=== PATIENT | female | born 1980 | race Caucasian/White ===

== ENCOUNTER 2017-01-05 12:42 | Emergency (ER) | payer MEDICAID ==
[2017-01-05 14:02] LABS: Eosinophils % (Auto) 1.6 % (0.0-4.3); Hematocrit 38.9 % (30.3-42.9); Hemoglobin 13.2 gm/dl (10.1-14.3); Mean Corpuscular HGB Conc 34 % (30-34); Mean Corpuscular Hemoglobin 34 pg (28-32); Mean Corpuscular Volume 100 fl (79-97); Platelet Count 180 K/mm3 (140-440); Red Blood Count 3.88 M/mm3 (3.65-5.03); Red Cell Distribution Width 14.6 % (13.2-15.2); White Blood Count 6.8 K/mm3 (4.5-11.0)
[2017-01-05 15:37] LABS: Bilirubin,Urine NEG (Negative); Blood,Urine LG (Negative); Ketones,Urine NEG (Negative); Leukocyte Esterase,Urine NEG (Negative); Nitrite,Urine NEG (Negative); RBC,Urine > 182.0 /HPF (0.0-6.0); Urobilinogen,Urine < 2.0 mg/dL (<2.0)
--- NOTE | 2017-01-05 22:29 | Emergency Department Report ---
ED Female HPI - General Chief complaint: Vaginal Bleeding Stated complaint: VAG BLEEDING/CRAMPING/12 DAYS Source: patient Mode of arrival: Ambulatory Limitations: No Limitations - History of Present Illness Initial comments: 36-year-old female presents to emergency department with complaint of crampy lower pelvic pain and vaginal bleeding. Patient states she's been changing her pads approximately every 6 hours for the current day. She is never had a unusual or abnormal cycle in the past. She states that her bleeding started on December 24 and subsequently stopped the following Tuesday. She just restarted bleeding today. She do not believe she is . No fevers chills nausea vomiting. -: Sudden Location: suprapubic, LLQ Radiation: non-radiating Severity: moderate Quality: sharp Worsens with: none Are you Now?: No Associated Symptoms: vaginal bleeding. denies: headaches, loss of appetite, dysuria, shortness of breath, syncope - Related Data Previous Rx's Medication Instructions Recorded Last Taken Type Aspirin EC [Aspirin Enteric Coated 325 mg PO QDAY #30 tablet 10/22/13 Unknown Rx TAB] HYDROcodone/APAP 5-325 [Lee 1 each PO Q6HR PRN #20 tablet 06/04/14 Unknown Rx 5-325 mg TAB] Allergies Allergy/AdvReac Type Severity Reaction Status Date / Time lactose Allergy Vomiting Verified 06/04/14 10:08 Penicillins Allergy Vomiting Verified 06/04/14 10:08 ED Review of Systems ROS: Stated complaint: VAG BLEEDING/CRAMPING/12 DAYS Other details as noted in HPI Comment: All other systems reviewed and negative Constitutional: denies: chills, fever Eyes: denies: eye pain, eye discharge, vision change ENT: denies: ear pain, throat pain Respiratory: denies: cough, shortness of breath, wheezing Cardiovascular: denies: chest pain, palpitations Endocrine: no symptoms reported Gastrointestinal: denies: abdominal pain, nausea, diarrhea Genitourinary: denies: urgency, dysuria, discharge Musculoskeletal: denies: back pain, joint swelling, arthralgia Skin: denies: rash, lesions Neurological: denies: headache, weakness, paresthesias Psychiatric: denies: anxiety, depression Hematological/Lymphatic: denies: easy bleeding, easy bruising ED Past Medical Hx - Past Medical History Hx Congestive Heart Failure: No Hx Diabetes: No Hx Asthma: No Hx COPD: No Additional medical history: mitral valve prolapse - Surgical History Additional Surgical History: , mitral valve replacement - Family History Family history: no significant - Social History Smoking Status: Current Every Day Smoker Substance Use Type: Alcohol - Medications Home Medications: Home Medications Medication Instructions Recorded Confirmed Last Taken Type Aspirin EC [Aspirin Enteric Coated 325 mg PO QDAY #30 tablet 10/22/13 06/04/14 Unknown Rx TAB] HYDROcodone/APAP 5-325 [Lee 1 each PO Q6HR PRN #20 tablet 06/04/14 Unknown Rx 5-325 mg TAB] ED Physical Exam - General Limitations: No Limitations General appearance: alert, in no apparent distress - Head Head exam: Present: atraumatic, normocephalic - Eye Eye exam: Present: normal appearance. Absent: scleral icterus, conjunctival injection - ENT ENT exam: Present: mucous membranes moist - Neck Neck exam: Present: normal inspection - Respiratory Respiratory exam: Present: normal lung sounds bilaterally. Absent: respiratory distress, wheezes, rales - Cardiovascular Cardiovascular Exam: Present: regular rate, normal rhythm. Absent: systolic murmur, diastolic murmur, rubs, gallop - GI/Abdominal GI/Abdominal exam: Present: soft, tenderness (suprapubic and left lower quadrant ), normal bowel sounds. Absent: distended, guarding, rebound - Extremities Exam Extremities exam: Present: normal inspection - Back Exam Back exam: Present: normal inspection - Neurological Exam Neurological exam: Present: alert, oriented X3 - Psychiatric Psychiatric exam: Present: normal affect, normal mood - Skin Skin exam: Present: warm, dry, intact, normal color. Absent: rash ED Course Vital Signs 01/05/17 12:49 Temperature 98.7 F Pulse Rate 52 L Respiratory 16 Rate Blood Pressure 100/66 O2 Sat by Pulse 98 Oximetry ED Medical Decision Making - Lab Data Result diagrams: 01/05/17 13:37 Laboratory Results - last 24 hr 01/05/17 01/05/17 01/05/17 13:37 13:37 13:37 WBC 6.8 RBC 3.88 Hgb 13.2 Hct 38.9 MCV 100 H MCH 34 H MCHC 34 RDW 14.6 Plt Count 180 Lymph % (Auto) 25.6 [place] % (Auto) 7.6 H Eos % (Auto) 1.6 Baso % (Auto) 1.0 Lymph # 1.7 [place] # 0.5 Eos # 0.1 Baso # 0.1 Seg Neutrophils % 64.2 Seg Neutrophils # 4.4 HCG, Quant < 2 Urine Color Urine Turbidity Urine pH Ur Specific [place] Urine Protein Urine Glucose (UA) Urine Ketones Urine Blood Urine Nitrite Urine Bilirubin Urine Urobilinogen Ur Leukocyte Esterase Urine WBC (Auto) Urine RBC (Auto) U Epithel Cells (Auto) Blood Type O POSITIVE Antibody Screen Negative 01/05/17 14:28 WBC RBC Hgb Hct MCV MCH MCHC RDW Plt Count Lymph % (Auto) [place] % (Auto) Eos % (Auto) Baso % (Auto) Lymph # [place] # Eos # Baso # Seg Neutrophils % Seg Neutrophils # HCG, Quant Urine Color Red Urine Turbidity Slightly-cloudy Urine pH 6.0 Ur Specific [place] 1.011 Urine Protein 100 mg/dl Urine Glucose (UA) Neg Urine Ketones Neg Urine Blood Lg Urine Nitrite Neg Urine Bilirubin Neg Urine Urobilinogen < 2.0 Ur Leukocyte Esterase Neg Urine WBC (Auto) 82.0 H Urine RBC (Auto) > 182.0 U Epithel Cells (Auto) 2.0 Blood Type Antibody Screen - Medical Decision Making Patient is a 36-year-old female here with vaginal bleeding. Patient states she does not typically have unusual cycles. She is slightly tender in her suprapubic region and her left lower quadrant. Plan to evaluate with pelvic ultrasound. CBC unremarkable. Patient appears clinically well. Plan outpatient follow-up with her dye house helper next week. Critical care attestation.: If time is entered above; I have spent that time in minutes in the direct care of this critically ill patient, excluding procedure time. ED Disposition Clinical Impression: Vaginal bleeding, Dysmenorrhea Disposition: DC-01 TO HOME OR SELFCARE Is pt being admited?: No Condition: Stable Instructions: Dysmenorrhea (ED) Additional Instructions: Please follow up with your dye house helper tomorrow Referrals: PRIMARY CARE [Primary Care Provider] - 3-5 Days
--- NOTE | 2017-01-06 00:02 | Ultrasound Report ---
FINAL REPORT PROCEDURE: US TRANSVAGINAL TECHNIQUE: Real-time transvaginal sonography in multiple planes of the pelvis was performed with image documentation. This examination was performed without Doppler. Vascular abnormalities, including ovarian torsion, will not be detectable without Doppler evaluation. CPT 26037 HISTORY: vaginal bleeding, pain COMPARISON: No prior studies are available for comparison. FINDINGS: UTERUS Size: 8 x 4 cm. Endometrial thickness: 8 mm. Orientation: anteverted. Cervix: Normal. Fibroids/masses: None. RIGHT Ovary: 2.9 x 2.2 x 2.4 cm. Appearance: Normal. LEFT Ovary: 3.5 x 2.6 x 2.3 cm. Appearance: Normal. Pelvic fluid: None. Other: None. IMPRESSION: Unremarkable study.
[2017-01-06] MEDS ORDERED: TYLENOL PO ONE (00:37)
--- NOTE | 2017-01-06 00:45 | Ultrasound Report ---
FINAL REPORT PROCEDURE: US PELVIC COMPLETE TECHNIQUE: Real-time transabdominal sonography in multiple planes of pelvis was performed with image documentation. This examination was performed without Doppler. Vascular abnormalities, including ovarian torsion, will not be detectable without Doppler evaluation. CPT 69552 HISTORY: vaginal bleeding, pain COMPARISON: No prior studies are available for comparison. FINDINGS: UTERUS Size: 8 x 4 cm. Endometrial thickness: 8 mm. Orientation: anteverted. Cervix: Normal. Fibroids/masses: None. RIGHT Ovary: 2.9 x 2.2 x 2.4 cm. Appearance: Normal. LEFT Ovary: 3.5 x 2.6 x 2.3 cm. Appearance: Normal. Pelvic fluid: None. Other: None. IMPRESSION: Normal Examination
[2017-01-06 00:48] VITALS: BP 137/73
== END 2017-01-06 00:58 | disposition home or self-care (01) ==
LOC: ED 12:42
DX: N94.6 Dysmenorrhea, unspecified (principal); F17.200 Nicotine dependence, unspecified, uncomplicated
CPT/HCPCS: 36415; 76830; 76856; 81001; 84702; 85025; 86850; 86900; 86901; 87591

== ENCOUNTER 2017-03-06 05:13 | Emergency (ER) | payer MEDICAID, OTHER ==
[2017-03-06] MEDS ORDERED: MOTRIN ONE ×2 (06:49→12:18)
[2017-03-06] MEDS ORDERED: MOTRIN PO ONE ×2 (06:49→12:14)
[2017-03-06] MEDS ORDERED: NACL 0.9% 1000 ML 1,000 ML IV ONE (08:46)
--- NOTE | 2017-03-06 09:10 | XRay Report ---
Unilateral left ribs: History: Left hip pain. Findings: No fracture or lytic lesion. No periosteal reaction. Impression: Essentially negative left ribs.
[2017-03-06 09:14] LABS: Basophils % (Auto) 0.7 % (0.0-1.8); Eosinophils % (Auto) 0.4 % (0.0-4.3); Hematocrit 41.3 % (30.3-42.9); Hemoglobin 14.2 gm/dl (10.1-14.3); Mean Corpuscular HGB Conc 34 % (30-34); Mean Corpuscular Hemoglobin 34 pg (28-32); Mean Corpuscular Volume 100 fl (79-97); Platelet Count 194 K/mm3 (140-440); Red Blood Count 4.14 M/mm3 (3.65-5.03); Red Cell Distribution Width 13.5 % (13.2-15.2); White Blood Count 12.3 K/mm3 (4.5-11.0)
[2017-03-06] MEDS ORDERED: NACL ONE (09:24)
[2017-03-06 09:28] LABS: INR 1.01 (0.87-1.13)
[2017-03-06 09:29] LABS: Partial Thromboplastin Time 24.2 Sec. (24.2-36.6)
[2017-03-06 09:36] LABS: Albumin 4.4 g/dL (3.9-5); Albumin/Globulin Ratio 1.2 %; BUN/Creatinine Ratio 13; Blood Urea Nitrogen 8 mg/dL (7-17); Calcium 9.1 mg/dL (8.4-10.2); Carbon Dioxide 22 mmol/L (22-30); Chloride 100.2 mmol/L (98-107); Glucose 71 mg/dL (65-100); Sodium 139 mmol/L (137-145); Total Protein 8.1 g/dL (6.3-8.2)
[2017-03-06 09:47] LABS: Alanine Aminotransferase 38 units/L (7-56); Alkaline Phosphatase 46 units/L (35-129); Anion Gap 22 mmol/L; Potassium 5.5 mmol/L (3.6-5.0)
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
--- NOTE | 2017-03-06 10:22 | Cat Scan Report ---
CT scan of head without IV contrast: Next History: Trauma. Findings: Ventricles are normal in size and midline in location. No evidence of acute ischemia, hemorrhage or mass. No extra-axial fluid collection. Normal brainstem and cerebellum. No acute changes in the sinuses and mastoid air cells. Suspicion of a retention cyst or polyp left maxillary sinus. Impression: No acute intracranial abnormality.
--- NOTE | 2017-03-06 10:26 | Cat Scan Report ---
CT scan abdomen and pelvis with IV contrast: History: Trauma. Findings: Normal lung bases. No pleural pericardial effusion. Normal liver spleen pancreas gallbladder. Normal adrenals. Scarring in the cortex of the right and left kidney parenchyma. No mass. Normal bladder. No free intraperitoneal fluid or air. No evidence of adenopathy. No extravasation of contrast. No significant bowel distention or wall thickening. Impression: Scarring right and left kidney/chronic. No acute abdominal findings.
--- NOTE | 2017-03-06 10:28 | Cat Scan Report ---
CT scan of chest with IV contrast: History: Trauma. Findings: No endobronchial or mediastinal mass. No mediastinal hilar or axillary adenopathy. No pleural pericardial effusion. No consolidation, mass or pneumothorax of the lung parenchyma. No evidence of rib fracture. Impression: Essentially negative CT scan of the chest.
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
[2017-03-06] MEDS ORDERED: HYDROGEN PEROXIDE ONE (10:54)
[2017-03-06 11:12] LABS: Urine Drugs of Abuse Note Disclamer
[2017-03-06 11:21] LABS: Potassium 4.2 mmol/L (3.6-5.0)
[2017-03-06 11:22] LABS: Bilirubin,Urine NEG (Negative); Blood,Urine MOD (Negative); Ketones,Urine NEG (Negative); Leukocyte Esterase,Urine NEG (Negative); Mucus,Urine FEW /HPF; Nitrite,Urine NEG (Negative); Protein,Urine <15 mg/dL mg/dL (Negative); Urobilinogen,Urine < 2.0 mg/dL (<2.0)
[2017-03-06] MEDS ORDERED: BOOSTRIX IM ONE ×2 (12:15→12:19)
[2017-03-06 13:09] VITALS: BP 131/97
== END 2017-03-06 13:09 | disposition home or self-care (01) ==
LOC: ED 05:13
DX: S00.81XA Abrasion of other part of head, initial encounter (principal); S90.512A Abrasion, left ankle, initial encounter; M79.1 Myalgia; F17.200 Nicotine dependence, unspecified, uncomplicated; Z79.82 Long term (current) use of aspirin; Z88.0 Allergy status to penicillin; Z88.8 Allergy status to other drugs, medicaments and biological substances; V89.2XXA Person injured in unspecified motor-vehicle accident, traffic, initial encounter; Y93.9 Activity, unspecified; Y99.9 Unspecified external cause status; Y92.410 Unspecified street and highway as the place of occurrence of the external cause
CPT/HCPCS: 36415; 70450; 71100; 71260; 72125; 74177; 80053; 80307; 81001; 81025; 82550; 84132; 85025; 85610; 85730; 90471; 90715; 96360; 96361; 99284; G0480; J7030; Q9967; 80320

== ENCOUNTER 2017-06-30 09:10 | Emergency (ER) | payer MEDICAID ==
[2017-06-30] MEDS ORDERED: ZOFRAN ONE (09:31)
[2017-06-30] MEDS ORDERED: MORPHINE ONE (09:32)
[2017-06-30] MEDS ORDERED: MORPHINE IV ONE (09:35)
[2017-06-30] MEDS ORDERED: ZOFRAN IV ONE (09:35)
[2017-06-30] MEDS ORDERED: KETALAR ONE (10:32)
--- NOTE | 2017-06-30 10:49 | XRay Report ---
LEFT ELBOW, 2 VIEWS LEFT FOREARM, 2 VIEWS History: Fracture, dislocation, deformity. Findings: Posterior dislocation is identified at the left elbow. Comminuted fracture of the lateral radial head is identified. The distal humerus and ulna are within normal limits. There is diffuse soft tissue swelling. IMPRESSION: Posterior dislocation at the left elbow. Radial head fracture.
--- NOTE | 2017-06-30 12:02 | XRay Report ---
LEFT ELBOW, 3 views: History: left elbow pain, postreduction film. The posterior dislocation at the left elbow has been reduced since earlier today at at 0955 hours. Radial head fracture is poorly imaged. The distal humerus and proximal ulna are grossly intact on this limited exam. Diffuse soft tissue swelling. IMPRESSION: Anatomic alignment at the left elbow.
--- NOTE | 2017-06-30 13:24 | Emergency Department Report ---
ED Extremity Problem HPI - General Chief complaint: Extremity Injury, Upper Stated complaint: FALL/ELBOW PAIN Time Seen by Provider: 06/30/17 09:26 Source: patient Mode of arrival: Ambulatory Limitations: No Limitations - History of Present Illness Initial comments: Ms. Harman is a 36 yo female presents after fall down steps. She landed on left arm which bumped into tree. She has severe left arm pain with deformity. No other injury. She drove herself to ED. NO recent illness. Hx of MVR with hx of mitral valve prolapse and endocarditis. MD Complaint: extremity pain, extremity swelling -: Gradual, Sudden Location: right, upper extremity, elbow -: Yes arthralgia Severity scale (0 -10): 10 Quality: aching, sharp Consistency: constant Worsens with: other (movement) - Related Data Previous Rx's Medication Instructions Recorded Last Taken Type Aspirin EC [Aspirin Enteric Coated 325 mg PO QDAY #30 tablet 10/22/13 Unknown Rx TAB] Cyclobenzaprine [Flexeril] 10 mg PO TID PRN #10 tablet 03/06/17 Unknown Rx Ibuprofen [Motrin] 800 mg PO Q8HR PRN #20 tablet 03/06/17 Unknown Rx traMADol [Ultram] 50 mg PO Q6HR PRN #10 tablet 03/06/17 Unknown Rx HYDROcodone/APAP 5-325 [[place] 1 each PO Q4HR PRN #20 tablet 06/30/17 Unknown Rx 5/325] Allergies Allergy/AdvReac Type Severity Reaction Status Date / Time lactose Allergy Vomiting Verified 06/04/14 10:08 Penicillins Allergy Vomiting Verified 06/04/14 10:08 ED Review of Systems ROS: Stated complaint: FALL/ELBOW PAIN Other details as noted in HPI Comment: All other systems reviewed and negative Respiratory: denies: cough Cardiovascular: denies: palpitations ED Past Medical Hx - Past Medical History Previous Medical History?: Yes Hx Congestive Heart Failure: No Hx Diabetes: No Hx Asthma: No Hx COPD: No Additional medical history: mitral valve prolapse - Surgical History Past Surgical History?: Yes Additional Surgical History: , mitral valve replacement - Social History Smoking Status: Never Smoker Substance Use Type: Alcohol - Medications Home Medications: Home Medications Medication Instructions Recorded Confirmed Last Taken Type Aspirin EC [Aspirin Enteric Coated 325 mg PO QDAY #30 tablet 10/22/13 06/04/14 Unknown Rx TAB] Cyclobenzaprine [Flexeril] 10 mg PO TID PRN #10 tablet 03/06/17 Unknown Rx Ibuprofen [Motrin] 800 mg PO Q8HR PRN #20 tablet 03/06/17 Unknown Rx traMADol [Ultram] 50 mg PO Q6HR PRN #10 tablet 03/06/17 Unknown Rx HYDROcodone/APAP 5-325 [[place] 1 each PO Q4HR PRN #20 tablet 06/30/17 Unknown Rx 5/325] ED Physical Exam - General Limitations: No Limitations General appearance: alert, in no apparent distress - Head Head exam: Present: atraumatic, normocephalic - Eye Eye exam: Present: normal appearance Pupils: Present: normal accommodation - ENT ENT exam: Present: normal orophraynx, mucous membranes moist - Neck Neck exam: Present: normal inspection. Absent: tenderness, meningismus - Respiratory Respiratory exam: Present: normal lung sounds bilaterally. Absent: respiratory distress, wheezes, rales, rhonchi - Cardiovascular Cardiovascular Exam: Present: regular rate, normal rhythm, normal heart sounds. Absent: bradycardia, tachycardia, irregular rhythm, systolic murmur, diastolic murmur, rubs, gallop - GI/Abdominal GI/Abdominal exam: Present: soft, normal bowel sounds. Absent: distended, tenderness, guarding, rebound - Extremities Exam Extremities exam: Present: joint swelling, other (2+ radial in LUE, deformed elbow with protrusion, edematous humerus and proximal forearm) - Back Exam Back exam: Present: normal inspection - Neurological Exam Neurological exam: Present: alert, oriented X3 - Psychiatric Psychiatric exam: Present: normal affect, normal mood - Skin Skin exam: Present: warm, dry, intact, normal color. Absent: rash ED Course Vital Signs 06/30/17 06/30/17 06/30/17 09:19 09:32 09:40 Temperature 98.4 F Temperature [ Pre-Procedure] Pulse Rate 108 H 103 H Pulse Rate [ Intra-Procedure ] Pulse Rate [Pre -Procedure] Respiratory 20 20 Rate Respiratory Rate [Intra- Procedure] Respiratory Rate [Pre- Procedure] Blood Pressure 119/73 Blood Pressure [Intra- Procedure] Blood Pressure [Pre-Procedure] Blood Pressure 120/84 [Right] O2 Sat by Pulse 100 100 100 Oximetry 06/30/17 06/30/17 06/30/17 09:57 10:00 10:10 Temperature Temperature [ Pre-Procedure] Pulse Rate Pulse Rate [ Intra-Procedure ] Pulse Rate [Pre -Procedure] Respiratory Rate Respiratory Rate [Intra- Procedure] Respiratory Rate [Pre- Procedure] Blood Pressure 120/84 97/72 97/72 Blood Pressure [Intra- Procedure] Blood Pressure [Pre-Procedure] Blood Pressure [Right] O2 Sat by Pulse 98 95 99 Oximetry 06/30/17 06/30/17 06/30/17 10:20 10:30 10:39 Temperature Temperature [ 97.8 F Pre-Procedure] Pulse Rate Pulse Rate [ 110 H Intra-Procedure ] Pulse Rate [Pre 81 -Procedure] Respiratory Rate Respiratory 14 Rate [Intra- Procedure] Respiratory 13 Rate [Pre- Procedure] Blood Pressure 97/72 113/86 Blood Pressure 165/112 [Intra- Procedure] Blood Pressure 124/94 [Pre-Procedure] Blood Pressure [Right] O2 Sat by Pulse 98 98 Oximetry 06/30/17 06/30/17 06/30/17 10:40 10:50 11:00 Temperature Temperature [ Pre-Procedure] Pulse Rate 81 113 H 105 H Pulse Rate [ Intra-Procedure ] Pulse Rate [Pre -Procedure] Respiratory 20 13 15 Rate Respiratory Rate [Intra- Procedure] Respiratory Rate [Pre- Procedure] Blood Pressure 124/94 141/102 137/91 Blood Pressure [Intra- Procedure] Blood Pressure [Pre-Procedure] Blood Pressure [Right] O2 Sat by Pulse 100 100 Oximetry 06/30/17 06/30/17 06/30/17 11:10 11:20 11:30 Temperature Temperature [ Pre-Procedure] Pulse Rate 90 94 H 94 H Pulse Rate [ Intra-Procedure ] Pulse Rate [Pre -Procedure] Respiratory 8 L 13 17 Rate Respiratory Rate [Intra- Procedure] Respiratory Rate [Pre- Procedure] Blood Pressure 140/97 135/96 130/90 Blood Pressure [Intra- Procedure] Blood Pressure [Pre-Procedure] Blood Pressure 140/97 [Right] O2 Sat by Pulse 100 100 100 Oximetry 06/30/17 06/30/17 06/30/17 11:40 11:50 12:00 Temperature Temperature [ Pre-Procedure] Pulse Rate 88 90 97 H Pulse Rate [ Intra-Procedure ] Pulse Rate [Pre -Procedure] Respiratory 15 9 L 13 Rate Respiratory Rate [Intra- Procedure] Respiratory Rate [Pre- Procedure] Blood Pressure 124/87 127/90 133/88 Blood Pressure [Intra- Procedure] Blood Pressure [Pre-Procedure] Blood Pressure [Right] O2 Sat by Pulse 100 100 100 Oximetry 06/30/17 06/30/17 06/30/17 12:10 12:20 12:30 Temperature Temperature [ Pre-Procedure] Pulse Rate 103 H 92 H 97 H Pulse Rate [ Intra-Procedure ] Pulse Rate [Pre -Procedure] Respiratory 19 15 9 L Rate Respiratory Rate [Intra- Procedure] Respiratory Rate [Pre- Procedure] Blood Pressure 128/90 130/93 115/82 Blood Pressure [Intra- Procedure] Blood Pressure [Pre-Procedure] Blood Pressure [Right] O2 Sat by Pulse 100 100 Oximetry 06/30/17 06/30/17 12:40 12:50 Temperature Temperature [ Pre-Procedure] Pulse Rate 96 H 95 H Pulse Rate [ Intra-Procedure ] Pulse Rate [Pre -Procedure] Respiratory 11 L 13 Rate Respiratory Rate [Intra- Procedure] Respiratory Rate [Pre- Procedure] Blood Pressure 117/95 122/68 Blood Pressure [Intra- Procedure] Blood Pressure [Pre-Procedure] Blood Pressure [Right] O2 Sat by Pulse 100 100 Oximetry - Moderate Sedation Indications: fracture/dislocation redu ASA Class: II Mallampati Airway Score: 1 Time of Last PO Intake: 08:00 Preparation: geosciences professor applied, pulse oximeter, capnometry used, supplemental O2 applied, suction/airway equipment at bedside, IV secured Ketamine: IV Ketamine Dose: 50 Complications: none Patient Tolerated Procedure: well - Orthopedic Joint Reduction Joint #1 Consent Obtained: written consent Time Out Performed: Yes Side: left Joint Reduction Location: elbow Analgesia: moderate sedation Technique Used: traction/counter-traction Post-Reduction Neuro Exam: intact Post-Reduction Vascular Exam: intact Post Reduction X-Ray Obtained: Yes Post Reduction X-Ray Results: reduced Splint Applied: Yes - Orthopedic Splinting/Casting Injury #1 Side: right Upper Extremity Injury Location: elbow Upper Extremity Immobilizer: posterior splint ED Medical Decision Making - Radiology Data Radiology results: report reviewed - Medical Decision Making Ms. Harman presents with fracture and reduction of left elbow. After 2 hours, observation and posterior splint placement, 2+ radial pulse intact normal alignment in 90, Patient is awake alert ambulatory. Conscious sedation and shortness were given. Consulted orthopedic surgeon Delano who recommended close follow-up in his office. Critical care attestation.: If time is entered above; I have spent that time in minutes in the direct care of this critically ill patient, excluding procedure time. ED Disposition Clinical Impression: Elbow dislocation, Radial head fracture, closed Disposition: - TO HOME OR SELFCARE Is pt being admited?: No Does the pt Need Aspirin: No Condition: Stable Instructions: Moderate Sedation (ED), Elbow Dislocation (ED), Elbow Fracture in Adults (ED) Prescriptions: HYDROcodone/APAP 5-325 [[place] 5/325] 1 each PO Q4HR PRN #20 tablet PRN Reason: Pain Referrals: PRIMARY CARE, [Primary Care Provider] - 3-5 Days Time of Disposition: 13:36
[2017-06-30] MEDS ORDERED: PERCOCET 5/325 PO ONE (13:38)
[2017-06-30 13:59] VITALS: BP 134/105
== END 2017-06-30 13:59 | disposition home or self-care (01) ==
LOC: ED 09:10
DX: S53.005A Unspecified dislocation of left radial head, initial encounter (principal); W22.09XA Striking against other stationary object, initial encounter; Y93.89 Activity, other specified; Y92.89 Other specified places as the place of occurrence of the external cause; Y99.8 Other external cause status
CPT/HCPCS: 29105; 73070; 73090; 96374; 96375; 99283; J2270; J2405

== ENCOUNTER 2017-07-03 03:00 | Emergency (ER) | payer MEDICAID ==
[2017-07-03] MEDS ORDERED: NORCO 7.5/325 PO ONE (03:42)
[2017-07-03] MEDS ORDERED: NORCO 7.5/325 ONE (03:46)
--- NOTE | 2017-07-03 04:01 | Emergency Department Report ---
ED Extremity Problem HPI - General Stated complaint: LEFT ARM SWELLING Time Seen by Provider: 07/03/17 03:41 - History of Present Illness Initial comments: 36-year-old -[place] female presents back to the emergency room for left arm swelling and pain. Patient reports that she had a splint put on on and she's had increased swelling since then. Patient reports that she is cut the splint partially off to relieve the pressure. The planes of left hand swollen and she can't bend her fingers. She also reports that the skin is red. Patient had a radial head fracture as well as a elbow dislocation. MD Complaint: extremity pain, extremity swelling -: days(s) (3) Location: left, upper extremity History of Same: No Radiation: none Severity scale (0 -10): 8 Quality: stabbing, aching Improves with: elevation, medication Associated Symptoms: rash - Related Data Previous Rx's Medication Instructions Recorded Last Taken Type Aspirin EC [Aspirin Enteric Coated 325 mg PO QDAY #30 tablet 10/22/13 Unknown Rx TAB] Cyclobenzaprine [Flexeril] 10 mg PO TID PRN #10 tablet 03/06/17 Unknown Rx Ibuprofen [Motrin] 800 mg PO Q8HR PRN #20 tablet 03/06/17 Unknown Rx traMADol [Ultram] 50 mg PO Q6HR PRN #10 tablet 03/06/17 Unknown Rx HYDROcodone/APAP 5-325 [[place] 1 each PO Q4HR PRN #20 tablet 07/03/17 Unknown Rx 5-325 mg TAB] Sulfamethoxazole/Trimethoprim 1 each PO BID 10 Days #20 tablet 07/03/17 Unknown Rx [Bactrim Ds Tablet] Allergies Allergy/AdvReac Type Severity Reaction Status Date / Time lactose Allergy Vomiting Verified 06/04/14 10:08 Penicillins Allergy Vomiting Verified 06/04/14 10:08 ED Review of Systems ROS: Stated complaint: LEFT ARM SWELLING Other details as noted in HPI ED Past Medical Hx - Past Medical History Previous Medical History?: Yes Hx Congestive Heart Failure: No Hx Diabetes: No Hx Asthma: No Hx COPD: No Additional medical history: mitral valve prolapse and Replacement 2013 - Surgical History Additional Surgical History: , mitral valve replacement - Social History Smoking Status: Former Smoker - Medications Home Medications: Home Medications Medication Instructions Recorded Confirmed Last Taken Type Aspirin EC [Aspirin Enteric Coated 325 mg PO QDAY #30 tablet 10/22/13 06/04/14 Unknown Rx TAB] Cyclobenzaprine [Flexeril] 10 mg PO TID PRN #10 tablet 03/06/17 Unknown Rx Ibuprofen [Motrin] 800 mg PO Q8HR PRN #20 tablet 03/06/17 Unknown Rx traMADol [Ultram] 50 mg PO Q6HR PRN #10 tablet 03/06/17 Unknown Rx HYDROcodone/APAP 5-325 [[place] 1 each PO Q4HR PRN #20 tablet 07/03/17 Unknown Rx 5-325 mg TAB] Sulfamethoxazole/Trimethoprim 1 each PO BID 10 Days #20 tablet 07/03/17 Unknown Rx [Bactrim Ds Tablet] ED Physical Exam - General General appearance: alert, in no apparent distress - Head Head exam: Present: atraumatic, normocephalic - Eye Eye exam: Present: normal appearance - ENT ENT exam: Present: mucous membranes moist - Neck Neck exam: Present: normal inspection - Respiratory Respiratory exam: Present: normal lung sounds bilaterally. Absent: respiratory distress - Cardiovascular Cardiovascular Exam: Present: regular rate, normal rhythm. Absent: systolic murmur, diastolic murmur, rubs, gallop - GI/Abdominal GI/Abdominal exam: Present: soft, normal bowel sounds - Extremities Exam Extremities exam: Present: normal inspection - Expanded Upper Extremity Exam Left Shoulder Exam: Present: normal inspection, full ROM Upper Arm exam: Present: tenderness, swelling, erythema Elbow exam: Present: tenderness, swelling, erythema, tenderness over radial head Forearm Wrist exam: Present: full ROM, tenderness, swelling, erythema Hand Wrist exam: Present: tenderness, swelling, erythema Vascular: Present: normal capillary refill. Absent: vascular compromise - Back Exam Back exam: Present: normal inspection - Neurological Exam Neurological exam: Present: alert, oriented X3 - Psychiatric Psychiatric exam: Present: normal affect, normal mood - Skin Skin exam: Present: warm, dry, intact, normal color, other (multiple blisters located on the forearm and portion of the upper arm). Absent: rash ED Course Vital Signs 07/03/17 07/03/17 03:32 03:51 Temperature 98.4 F Pulse Rate 109 H Respiratory 20 18 Rate Blood Pressure 144/112 O2 Sat by Pulse 100 Oximetry ED Medical Decision Making - Medical Decision Making Patient has been evaluated by this provider as well as with Dr. Mccann. I discussed the patient we will do an x-ray of her arm. Given patient on Percocet for pain control. Discussed the patient will do wound care for her blisters with Silvadene. Also discussed the patient that I would discharge her on antibiotics for prevention of secondary infection due to blisters on her arm. Also discussed the patient to keep her appointment with orthopedics that she reports is scheduled for Tuesday. Also referred patient to [facility] to have someone follow-up on her wounds. Patient verbalized understanding. Critical care attestation.: If time is entered above; I have spent that time in minutes in the direct care of this critically ill patient, excluding procedure time. ED Disposition Clinical Impression: Limb swelling Radial head fracture, closed Qualifiers: Encounter type: sequela Fracture alignment: displaced Laterality: left Qualified Code(s): S52.122S - Displaced fracture of head of left radius, sequela Elbow dislocation Qualifiers: Encounter type: sequela Laterality: left Qualified Code(s): S53.105S - Unspecified dislocation of left ulnohumeral joint, sequela Disposition: TO HOME OR SELFCARE Is pt being admited?: No Does the pt Need Aspirin: No Condition: Stable Instructions: Arthralgia (ED) Additional Instructions: Please continue to use the Silvadene topical cream to your blisters. Please do not operate heavy machinery while being on the Percocet. Please follow-up with the orthopedic provider that she will was referred to on . Please complete antibiotics as prescribed per precaution secondary infection. Follow- up which her primary care provider within 5-7 days for wound check. Prescriptions: HYDROcodone/APAP 5-325 [[place] 5-325 mg TAB] 1 each PO Q4HR PRN #20 tablet PRN Reason: Pain Sulfamethoxazole/Trimethoprim [Bactrim Ds Tablet] 1 each PO BID 10 Days #20 tablet Referrals: OLLIE FERNANDEZ MD [Primary Care Provider] - 3-5 Days ERI CABA MD [Staff Physician] - 3-5 Days [facility] [place] [Provider Group] - 3-5 Days Forms: Work/School Release Form(ED), Accompanied Note
--- NOTE | 2017-07-03 04:01 | Emergency Department Report ---
Blank Doc - Documentation Documentation: A [id number] with the patient. Agree with the documentation by the APAP. Patient splint was on too tight and she has significant edema to the arm with blistering. Patient also has not been keeping the arm elevated.
[2017-07-03] MEDS ORDERED: THERMAZENE 50 GRAM TP ONE (04:30)
--- NOTE | 2017-07-03 04:51 | XRay Report ---
FINAL REPORT EXAM: XR FOREARM LT HISTORY: swelling and pain COMPARISONS: None. FINDINGS: AP and lateral views of the right forearm No bone lesion, periosteal reaction, or fracture. No deformity or gross malalignment. Multiple soft tissue calcifications are present in the right upper extremity measuring up to around 3 cm adjacent to the elbow. IMPRESSION: No acute osseous finding. Multiple deeper soft tissue calcifications in the right upper extremity may be secondary to connective tissue disorder or recurrent injections. Clinical correlation is requested.
--- NOTE | 2017-07-03 04:52 | XRay Report ---
FINAL REPORT EXAM: XR HUMERUS 2+V LT HISTORY: arm pain and swelling COMPARISONS: Left forearm radiographs of the same date. FINDINGS: AP and lateral views of the left forearm No bone lesion, periosteal reaction, or fracture. No deformity or gross malalignment. Multiple soft tissue calcifications are present in the left upper extremity measuring up to around 3 cm adjacent to the elbow. IMPRESSION: No acute osseous finding. Multiple deeper soft tissue calcifications in the left upper extremity may be secondary to connective tissue disorder or recurrent injections. Clinical correlation is requested.
[2017-07-03 06:06] VITALS: BP 128/88
== END 2017-07-03 06:10 | disposition home or self-care (01) ==
LOC: ED 03:00
DX: M79.602 Pain in left arm (principal); S52.122S Displaced fracture of head of left radius, sequela; S53.10 Unspecified subluxation and dislocation of ulnohumeral joint; R60.0 Localized edema; Z91.011 Allergy to milk products; Z88.0 Allergy status to penicillin; X58.XXXS Exposure to other specified factors, sequela

== ENCOUNTER 2018-12-22 17:36 | Emergency (ER) | payer MEDICAID, OTHER ==
--- NOTE | 2018-12-22 17:45 | Event Note ---
ED Screening Note ED Screening Note: [id number] (one last year and one when much younger) LMP 7-3 pmh MV replacement 10/2013--[facility]-- pt states mechanical; due to endocarditis rx metoprolol here with vag bleed in preg This initial assessment/diagnostic orders/clinical plan/treatment(s) is/are subject to change based on patients health status, clinical progression and re- assessment by fellow clinical providers in the ED. Further treatment and workup at subsequent clinical providers discretion. Patient/guardian urged not to elope from the ED as their condition may be serious if not clinically assessed and managed. Initial orders include: ua labs us
[2018-12-22 18:32] LABS: Hemoglobin 12.9 gm/dl (10.1-14.3); Mean Corpuscular HGB Conc 34 % (30-34); Mean Corpuscular Volume 97 fl (79-97); Platelet Count 230 K/mm3 (140-440); Red Blood Count 3.93 M/mm3 (3.65-5.03); Red Cell Distribution Width 15.4 % (13.2-15.2)
[2018-12-22 18:45] LABS: BUN/Creatinine Ratio 16; Blood Urea Nitrogen 11 mg/dL (7-17); Calcium 9.2 mg/dL (8.4-10.2); Hemolysis Index 20
[2018-12-22 19:13] LABS: Bilirubin,Urine NEG (Negative); Blood,Urine NEG (Negative); Color,Urine Yellow (Yellow); Protein,Urine <15 mg/dL mg/dL (Negative); Urobilinogen,Urine < 2.0 mg/dL (<2.0); WBC,Urine < 1.0 /HPF (0.0-6.0)
--- NOTE | 2018-12-22 20:41 | Ultrasound Report ---
ULTRASOUND OBSTETRIC Indication: vag bleed in preg Findings: Transabdominal and transvaginal imaging was performed. There is a single, living intrauterine . [place]-rump length = 0.74 cm = 6 weeks, 4 day(s). heart rate is 123 beats per minute. No free fluid is seen. Impression: Single, living intrauterine with estimated sonographic age of 6 weeks, 4 day(s). No complic ations are seen. Signer Name: Rishabh Aguirre MD Signed: 12/22/2018 8:36 PM Workstation Name: [id number]
--- NOTE | 2018-12-22 20:41 | Ultrasound Report ---
ULTRASOUND OBSTETRIC Indication: vag bleed in preg Findings: Transabdominal and transvaginal imaging was performed. There is a single, living intrauterine . [place]-rump length = 0.74 cm = 6 weeks, 4 day(s). heart rate is 123 beats per minute. No free fluid is seen. Impression: Single, living intrauterine with estimated sonographic age of 6 weeks, 4 day(s). No complic ations are seen. Signer Name: Rishabh Aguirre MD Signed: 12/22/2018 8:36 PM Workstation Name: [id number]
--- NOTE | 2018-12-22 21:02 | Emergency Department Report ---
ED HPI - General Chief complaint: Abdominal Pain Stated complaint: 4WKS /DISCHARGE/PAIN Time Seen by Provider: 12/22/18 17:42 Source: patient Mode of arrival: Ambulatory Limitations: No Limitations - History of Present Illness Initial comments: Patient is a 38-year-old female presents to emergency room with complaints of vaginal spotting that began 4 days ago. She states 2 weeks ago she took a home test which was positive. She states her last menstrual cycle was November 08. She denies any abdominal pain, dysuria, nausea, vomiting, diarrhea, fever. She does not report any vaginal discharge or vaginal complaints. The patient states she has her first appointment with an [facility] on 12/28/18 at [facility]. States she has an allergy to penicillin and lactose. PMHx of mitral valve replacement with pig valve. /P:3/A:2 - Related Data Previous Rx's Medication Instructions Recorded Last Taken Type Aspirin EC 325 mg PO QDAY #30 tablet 10/22/13 Unknown Rx Cyclobenzaprine [Flexeril] 10 mg PO TID PRN #10 tablet 03/06/17 Unknown Rx Ibuprofen [Motrin] 800 mg PO Q8HR PRN #20 tablet 03/06/17 Unknown Rx traMADol [Ultram] 50 mg PO Q6HR PRN #10 tablet 03/06/17 Unknown Rx HYDROcodone/APAP 5-325 [[place] 1 each PO Q4HR PRN #20 tablet 07/03/17 Unknown Rx 5-325 mg TAB] Sulfamethoxazole/Trimethoprim 1 each PO BID 10 Days #20 tablet 07/03/17 Unknown Rx [Bactrim Ds Tablet] Allergies Allergy/AdvReac Type Severity Reaction Status Date / Time lactose Allergy Vomiting Verified 06/04/14 10:08 Penicillins Allergy Vomiting Verified 06/04/14 10:08 ED Review of Systems ROS: Stated complaint: 4WKS /DISCHARGE/PAIN Other details as noted in HPI Comment: All other systems reviewed and negative ED Past Medical Hx - Past Medical History Previous Medical History?: Yes Hx Congestive Heart Failure: No Hx Diabetes: No Hx Asthma: No Hx COPD: No Additional medical history: mitral valve prolapse and Replacement 2013 - Surgical History Past Surgical History?: Yes Additional Surgical History: , mitral valve replacement - Social History Smoking Status: Never Smoker Substance Use Type: None - Medications Home Medications: Home Medications Medication Instructions Recorded Confirmed Last Taken Type Aspirin EC 325 mg PO QDAY #30 tablet 10/22/13 06/04/14 Unknown Rx Cyclobenzaprine [Flexeril] 10 mg PO TID PRN #10 tablet 03/06/17 Unknown Rx Ibuprofen [Motrin] 800 mg PO Q8HR PRN #20 tablet 03/06/17 Unknown Rx traMADol [Ultram] 50 mg PO Q6HR PRN #10 tablet 03/06/17 Unknown Rx HYDROcodone/APAP 5-325 [[place] 1 each PO Q4HR PRN #20 tablet 07/03/17 Unknown Rx 5-325 mg TAB] Sulfamethoxazole/Trimethoprim 1 each PO BID 10 Days #20 tablet 07/03/17 Unknown Rx [Bactrim Ds Tablet] ED Physical Exam - General Limitations: No Limitations General appearance: alert, in no apparent distress - Head Head exam: Present: atraumatic, normocephalic - Eye Eye exam: Present: normal appearance - ENT ENT exam: Present: mucous membranes moist - Respiratory Respiratory exam: Present: normal lung sounds bilaterally. Absent: respiratory distress, wheezes, rales, rhonchi, stridor, accessory muscle use, decreased breath sounds, prolonged expiratory - Cardiovascular Cardiovascular Exam: Present: regular rate, normal rhythm, normal heart sounds. Absent: systolic murmur, diastolic murmur, rubs, gallop - GI/Abdominal GI/Abdominal exam: Present: soft, normal bowel sounds. Absent: distended, tenderness, guarding, rebound, rigid - Back Exam Back exam: Absent: CVA tenderness (R), CVA tenderness (L) - Neurological Exam Neurological exam: Present: alert, oriented X3 - Psychiatric Psychiatric exam: Present: normal affect, normal mood - Skin Skin exam: Present: warm, dry, intact ED Course Vital Signs 12/22/18 17:43 Temperature 98.6 F Pulse Rate 97 H Respiratory 20 Rate Blood Pressure 111/87 O2 Sat by Pulse 100 Oximetry ED Medical Decision Making - Lab Data Result diagrams: 12/22/18 18:11 12/22/18 18:11 Lab Results 12/22/18 12/22/18 12/22/18 Range/Units 18:11 18:11 18:11 WBC 8.6 (4.5-11.0) K/mm3 RBC 3.93 (3.65-5.03) M/mm3 Hgb 12.9 (10.1-14.3) gm/dl Hct 38.0 (30.3-42.9) % MCV 97 (79-97) fl MCH 33 H (28-32) pg MCHC 34 (30-34) % RDW 15.4 H (13.2-15.2) % Plt Count 230 (140-440) K/mm3 Sodium 136 L (137-145) mmol/L Potassium 4.2 (3.6-5.0) mmol/L Chloride 104.1 (98-107) mmol/L Carbon Dioxide 21 L (22-30) mmol/L Anion Gap 15 mmol/L BUN 11 (7-17) mg/dL Creatinine 0.7 (0.7-1.2) mg/dL Estimated GFR > 60 ml/min BUN/Creatinine Ratio 16 % Glucose 95 (65-100) mg/dL Calcium 9.2 (8.4-10.2) mg/dL HCG, Quant 24149 H (0-4) mIU/mL Urine Color (Yellow) Urine Turbidity (Clear) Urine pH (5.0-7.0) Ur Specific [place] (1.003-1.030) Urine Protein (Negative) mg/dL Urine Glucose (UA) (Negative) mg/dL Urine Ketones (Negative) mg/dL Urine Blood (Negative) Urine Nitrite (Negative) Urine Bilirubin (Negative) Urine Urobilinogen (<2.0) mg/dL Ur Leukocyte Esterase (Negative) Urine WBC (Auto) (0.0-6.0) /HPF Urine RBC (Auto) (0.0-6.0) /HPF U Epithel Cells (Auto) (0-13.0) /HPF Blood Type Ord Rhogam Gestat Weeks WEEKS 12/22/18 12/22/18 Range/Units 18:11 18:33 WBC (4.5-11.0) K/mm3 RBC (3.65-5.03) M/mm3 Hgb (10.1-14.3) gm/dl Hct (30.3-42.9) % MCV (79-97) fl MCH (28-32) pg MCHC (30-34) % RDW (13.2-15.2) % Plt Count (140-440) K/mm3 Sodium (137-145) mmol/L Potassium (3.6-5.0) mmol/L Chloride (98-107) mmol/L Carbon Dioxide (22-30) mmol/L Anion Gap mmol/L BUN (7-17) mg/dL Creatinine (0.7-1.2) mg/dL Estimated GFR ml/min BUN/Creatinine Ratio % Glucose (65-100) mg/dL Calcium (8.4-10.2) mg/dL HCG, Quant (0-4) mIU/mL Urine Color Yellow (Yellow) Urine Turbidity Slightly-cloudy (Clear) Urine pH 6.0 (5.0-7.0) Ur Specific [place] 1.014 (1.003-1.030) Urine Protein <15 mg/dl (Negative) mg/dL Urine Glucose (UA) Neg (Negative) mg/dL Urine Ketones Neg (Negative) mg/dL Urine Blood Neg (Negative) Urine Nitrite Neg (Negative) Urine Bilirubin Neg (Negative) Urine Urobilinogen < 2.0 (<2.0) mg/dL Ur Leukocyte Esterase Neg (Negative) Urine WBC (Auto) < 1.0 (0.0-6.0) /HPF Urine RBC (Auto) 1.0 (0.0-6.0) /HPF U Epithel Cells (Auto) 1.0 (0-13.0) /HPF Blood Type O POSITIVE Ord Rhogam Gestat Weeks Rh pos WEEKS - Radiology Data Radiology results: report reviewed ULTRASOUND OBSTETRIC Indication: vag bleed in preg Findings: Transabdominal and transvaginal imaging was performed. There is a single, living intrauterine . Truman-rump length = 0.74 cm = 6 weeks, 4 day(s). heart rate is 123 beats per minute. No free fluid is seen. Impression: Single, living intrauterine with estimated sonographic age of 6 weeks, 4 day(s). No complications are seen. Signer Name: Rishabh Aguirre MD Signed: 12/22/2018 8:36 PM Workstation Name: [id number] Transcribed By: ARNULFO Dictated By: Rishabh Aguirre MD Electronically Authenticated By: Rishabh Aguirre MD Signed Date/Time: 12/22/182035 - Medical Decision Making Patient is a 38-year-old female presents to emergency room with complaints of vaginal spotting that began 4 days ago. She states 2 weeks ago she took a home test which was positive. She states her last menstrual cycle was November 08. She denies any abdominal pain, dysuria, nausea, vomiting, diarrhea, fever. She does not report any vaginal discharge or vaginal complaints. The patient states she has her first appointment with an [facility] DOTTER on 12/28/18 at [facility]. States she has an allergy to penicillin and lactose. PMHx of mitral valve replacement with pig valve. /P:3/A:2. VSS. [place] [address]. labs WNL. pt is Rh positive. UA without evidence of UTI. OB US: Single, living intrauterine with estimated sonographic age of 6 weeks, 4 day(s). No complications are seen. discussed threatened miscarriage with patient due to vaginal spotting. advised that she will need to have a repeat beta-hCG on the next 2-3 days. May have this done at a primary care doctor, [facility], or return to the emergency room. your hCG Quant today was [id number]. Follow-up with a [facility] DOTTER in the next 2-3 days. drink plenty of water and take a daily vitamins [id number]. Return to the emergency room for any new or worsening symptoms. - Differential Diagnosis IUP, threatened/spontaneous , UTI, hemorrhagic cyst, ectopic Critical care attestation.: If time is entered above; I have spent that time in minutes in the direct care of this critically ill patient, excluding procedure time. ED Disposition Clinical Impression: Vaginal spotting, Threatened miscarriage Qualifiers: Weeks of gestation: less than 8 weeks Qualified Code(s): Z3A.01 - Less than 8 weeks gestation of Disposition: DC-01 TO HOME OR SELFCARE Is pt being admited?: No Does the pt Need Aspirin: No Condition: Stable Instructions: Threatened Miscarriage (ED) Additional Instructions: you will need to have a repeat beta-hCG on the next 2-3 days. May have this done at a primary care doctor, [facility], or return to the emergency room. your hCG Quant today was [id number]. Follow-up with a L[facility] DOTTER in the next 2-3 days. drink plenty of water and take a daily vitamins [id number]. Return to the emergency room for any new or worsening symptoms. Referrals: [facility] [Provider Group] - 2-3 Days Time of Disposition: 21:01 Print Language: LATVIAN
[2018-12-23 05:09] VITALS: BP 112/78
== END 2018-12-22 21:30 | disposition home or self-care (01) ==
LOC: ED 17:36
DX: O20.0 Threatened abortion (principal); Z79.899 Other long term (current) drug therapy; Z88.0 Allergy status to penicillin; Z91.09 Other allergy status, other than to drugs and biological substances; Z3A.01 Less than 8 weeks gestation of pregnancy
CPT/HCPCS: 36415; 76801; 76817; 80048; 81001; 84702; 85027; 86900; 86901

== ENCOUNTER 2019-03-20 11:30 | Emergency (ER) | payer MEDICAID ==
[2019-03-20] MEDS ORDERED: ACETAMINOPHEN 325 MG TAB PO ONE (15:20)
--- NOTE | 2019-03-20 15:21 | Emergency Department Report ---
ED ENT HPI - General Chief complaint: Earache Stated complaint: EAR ACHE/SORE THROAT Time Seen by Provider: 03/20/19 12:32 Source: patient Mode of arrival: Ambulatory Limitations: No Limitations - History of Present Illness Initial comments: 38-year-old -Maldivian female presents to the emergency room for left ear pain. Patient reports she is 4 months . Patient states that the pain started yesterday and was started in her throat and has migrated to her left ear. Patient states is worse with swallowing or chewing. Patient has taken hydrocodone for her pain. MD complaint: ear pain Onset/Timin -: days(s) Location: L ear Severity: severe Quality: aching, sharp Consistency: intermittent Improves with: none Worsens with: swallowing, eating Associated Symptoms: pain with swallowing, sore throat. denies: fever, cough, gum swelling, toothache, tinnitus, hearing loss, discharge from ear, rhinorrhea, other - Related Data Previous Rx's Medication Instructions Recorded Last Taken Type Aspirin EC 325 mg PO QDAY #30 tablet 10/22/13 Unknown Rx Cyclobenzaprine [Flexeril] 10 mg PO TID PRN #10 tablet 03/06/17 Unknown Rx Ibuprofen [Motrin] 800 mg PO Q8HR PRN #20 tablet 03/06/17 Unknown Rx traMADol [Ultram] 50 mg PO Q6HR PRN #10 tablet 03/06/17 Unknown Rx HYDROcodone/APAP 5-325 [[place] 1 each PO Q4HR PRN #20 tablet 07/03/17 Unknown Rx 5-325 mg TAB] Sulfamethoxazole/Trimethoprim 1 each PO BID 10 Days #20 tablet 07/03/17 Unknown Rx [Bactrim Ds Tablet] Neomycin/Polymyxin B Sulf/Hc 4 drop AU TID #1 bottle 03/20/19 Unknown Rx [NEOMY/POLY/HC 3.5mg/45273gmzcu/10mg OTIC] Allergies Allergy/AdvReac Type Severity Reaction Status Date / Time lactose Allergy Vomiting Verified 06/04/14 10:08 Penicillins Allergy Vomiting Verified 06/04/14 10:08 ED Dental HPI - General Chief complaint: Earache Stated complaint: EAR ACHE/SORE THROAT Time Seen by Provider: 03/20/19 12:32 Source: patient Mode of arrival: Ambulatory Limitations: No Limitations - Related Data Previous Rx's Medication Instructions Recorded Last Taken Type Aspirin EC 325 mg PO QDAY #30 tablet 10/22/13 Unknown Rx Cyclobenzaprine [Flexeril] 10 mg PO TID PRN #10 tablet 03/06/17 Unknown Rx Ibuprofen [Motrin] 800 mg PO Q8HR PRN #20 tablet 03/06/17 Unknown Rx traMADol [Ultram] 50 mg PO Q6HR PRN #10 tablet 03/06/17 Unknown Rx HYDROcodone/APAP 5-325 [[place] 1 each PO Q4HR PRN #20 tablet 07/03/17 Unknown Rx 5-325 mg TAB] Sulfamethoxazole/Trimethoprim 1 each PO BID 10 Days #20 tablet 07/03/17 Unknown Rx [Bactrim Ds Tablet] Neomycin/Polymyxin B Sulf/Hc 4 drop AU TID #1 bottle 03/20/19 Unknown Rx [NEOMY/POLY/HC 3.5mg/91073litpu/10mg OTIC] Allergies Allergy/AdvReac Type Severity Reaction Status Date / Time lactose Allergy Vomiting Verified 06/04/14 10:08 Penicillins Allergy Vomiting Verified 06/04/14 10:08 ED Review of Systems ROS: Stated complaint: EAR ACHE/SORE THROAT Other details as noted in HPI Comment: All other systems reviewed and negative ED Past Medical Hx - Past Medical History Previous Medical History?: Yes Hx Congestive Heart Failure: No Hx Diabetes: No Hx Asthma: No Hx COPD: No Additional medical history: mitral valve prolapse and Replacement 2013 - Surgical History Past Surgical History?: Yes Additional Surgical History: , mitral valve replacement - Social History Smoking Status: Never Smoker Substance Use Type: None - Medications Home Medications: Home Medications Medication Instructions Recorded Confirmed Last Taken Type Aspirin EC 325 mg PO QDAY #30 tablet 10/22/13 06/04/14 Unknown Rx Cyclobenzaprine [Flexeril] 10 mg PO TID PRN #10 tablet 03/06/17 Unknown Rx Ibuprofen [Motrin] 800 mg PO Q8HR PRN #20 tablet 03/06/17 Unknown Rx traMADol [Ultram] 50 mg PO Q6HR PRN #10 tablet 03/06/17 Unknown Rx HYDROcodone/APAP 5-325 [[place] 1 each PO Q4HR PRN #20 tablet 07/03/17 Unknown Rx 5-325 mg TAB] Sulfamethoxazole/Trimethoprim 1 each PO BID 10 Days #20 tablet 07/03/17 Unknown Rx [Bactrim Ds Tablet] Neomycin/Polymyxin B Sulf/Hc 4 drop AU TID #1 bottle 03/20/19 Unknown Rx [NEOMY/POLY/HC 3.5mg/50889wfotj/10mg OTIC] ED Physical Exam - General Limitations: No Limitations General appearance: alert, in no apparent distress, other (tearful) - Head Head exam: Present: atraumatic, normocephalic - Expanded ENT Exam Expanded TM/Canal exam: Canal Tenderness: Left TM (swelling, with redness) Mouth exam: Present: normal external inspection Teeth exam: Present: normal inspection - Neck Neck exam: Present: normal inspection, tenderness, full ROM ED Course Vital Signs 03/20/19 12:20 Temperature 97.6 F Pulse Rate 89 Respiratory 18 Rate Blood Pressure 104/58 O2 Sat by Pulse 97 Oximetry ED Medical Decision Making - Medical Decision Making 38-year-old -Maldivian female presents to the emergency room for left ear pain. Patient reports she is 4 months . Patient states that the pain started yesterday and was started in her throat and has migrated to her left ear. Patient states is worse with swallowing or chewing. Patient has taken hydrocodone for her pain. I informed patient I would not be able to give her prescriptions for narcotics but I will offer her Tylenol and prescription for antibiotics and numbing medicine for her left ear otitis externa. Critical care attestation.: If time is entered above; I have spent that time in minutes in the direct care of this critically ill patient, excluding procedure time. ED Disposition Clinical Impression: Otitis externa Disposition: DC-01 TO HOME OR SELFCARE Is pt being admited?: No Does the pt Need Aspirin: No Condition: Stable Instructions: Otitis Externa (ED) Prescriptions: Neomycin/Polymyxin B Sulf/Hc [NEOMY/POLY/HC 3.5mg/95951qwizg/10mg OTIC] 4 drop AU TID #1 bottle Referrals: PRIMARY CARE, [Primary Care Provider] - 3-5 Days
[2019-03-20 15:50] VITALS: BP 97/63
== END 2019-03-20 15:49 | disposition home or self-care (01) ==
LOC: ED 11:30
DX: O26.892 Other specified pregnancy related conditions, second trimester (principal); H92.02 Otalgia, left ear; Z88.0 Allergy status to penicillin; Z91.011 Allergy to milk products; Z79.1 Long term (current) use of non-steroidal anti-inflammatories (NSAID); Z79.82 Long term (current) use of aspirin; Z79.899 Other long term (current) drug therapy; Z3A.16 16 weeks gestation of pregnancy
CPT/HCPCS: 99282